=== PATIENT | female | born 1960 | race Caucasian/White ===

== ENCOUNTER 2016-10-26 | Outpatient (CLI) | payer MEDICAID | END 2016-10-26 23:59 | DX: R00.8 Other abnormalities of heart beat (principal) ==

== ENCOUNTER 2016-10-27 14:57 | Outpatient (CLI) | payer MEDICAID | END 2016-10-27 14:58 | disposition home or self-care (01) | DX: Z01.84 Encounter for antibody response examination (principal) ==